=== PATIENT | female | born 1940 | race Caucasian/White ===

== ENCOUNTER 2019-04-28 16:30 | Emergency (ER) | payer OTHER ==
[~2019-04-28] VITALS: Ht 154.9 cm; Wt 65.9 kg
[~2019-04-28 16:30] MED LIST: ALBU8.5H8 INH; ALEN70TA5 PO; AZEL6DRO2 BOTH EYES; CALC500T11 PO; CHOL200056 PO; FLOV220 INHALATION; FLUT16SP17 NASAL; GEMF600T8 PO; IBUP-1561 PO; LISI-471 PO; LORA10TA3 PO; MAG355OR14 PO; MELO15TA30 PO; OMEP20CA16 PO; ONDA4TAB8 PO
[2019-04-28 16:35] VITALS: Ht 154.9 cm; Wt 65.9 kg
[2019-04-28] MEDS ORDERED: ONDANSETRON 4 MG INJ IV STA (16:55)
[2019-04-28] MEDS ORDERED: KETOROLAC 15 MG INJ IV STA (16:55)
[2019-04-28] MEDS ORDERED: BELLADONNA/PHENOBARBITAL TAB PO STA (16:55)
[2019-04-28] MEDS ORDERED: SOD CHLORIDE 0.9% 500 ML IV STA (16:55)
[2019-04-28] MEDS ORDERED: LIDOCAINE/MYLANTA 40 ML BTL PO STA (16:55)
[2019-04-28 20:08] VITALS: BP 122/71; PULSE 66; RESP 16
== END 2019-04-28 20:10 | disposition home or self-care (01) ==
LOC: E/R 16:30
DX: K80.20 Calculus of gallbladder without cholecystitis without obstruction (principal); E11.9 Type 2 diabetes mellitus without complications; I10 Essential (primary) hypertension; E66.9 Obesity, unspecified; J45.909 Unspecified asthma, uncomplicated; Z68.27 Body mass index [BMI] 27.0-27.9, adult
CPT/HCPCS: 36415; 71045; 74176; 76705; 80053; 81001; 83690; 84484; 85025; 85610; 85730; 93005; 96374; 96375; J1885; J2405; J7040; Z7502; Z7610